=== PATIENT | female | born 1955 | race Caucasian/White ===

== ENCOUNTER 2018-06-22 13:53 | Inpatient (IN) | payer MEDICARE ==
[2018-06-22 14:20] LABS: Lactate 1.35 mmol/L (0.50-2.20)
[2018-06-22 14:27] LABS: Hemoglobin 13.4 g/dL (12.0-16.0); Mean Corpuscular HGB CONC 32.8 g/dL (32.0-36.0); Mean Corpuscular Hemoglobin 27.9 pg (27.0-31.0); Mean Corpuscular Volume 85.2 fL (78.0-98.0); Mean Platelet Volume 7.8 fL (7.4-10.4); Platelet Count 286 thou/uL (130-400); RBC Distribution Width 12.8 % (11.5-14.5); Red Blood Cell (RBC) Count 4.79 mill/uL (4.20-5.40); White Blood Cell (WBC) Count 23.3 thou/uL (4.8-10.8)
[2018-06-22] MEDS ORDERED: diphenhydrAMINE 50 MG/ML VIAL ONE (14:34)
[2018-06-22] MEDS ORDERED: Metoclopramide HCl 10 MG/2 ML VIAL ONE (14:34)
[2018-06-22] MEDS ORDERED: Sodium Chloride 0.9% 100 ML ONE (14:34)
[2018-06-22] MEDS ORDERED: Dexamethasone 10 MG/ML VIAL ONE (14:34)
[2018-06-22] MEDS ORDERED: cefTRIAXone\\ROCEPHIN 1 GM VIAL ONE (14:34)
[2018-06-22 14:39] LABS: Bilirubin Negative (Negative); Blood, Urine Moderate (Negative); Clarity CLOUDY (Clear); Glucose, Urine (Dipstick) Negative (Negative); Leukocyte Large (Negative); Nitrite Positive (Negative); Protein, Urine (Dipstick) 100 mg/dL (Neg-Trace); Specific Gravity, Urine 1.015 (1.002-1.036)
[2018-06-22] MEDS ORDERED: Acetaminophen 500 MG TAB ONE (14:39)
[2018-06-22 14:40] LABS: Bacteria/HPF 4+ HPF (None Seen); Hyaline Casts/LPF 0-3 HYALINE CAST LPF (0-3 Hyaline); Squamous Epithelial None Seen HPF (0-3)
[2018-06-22 14:42] LABS: ALT (SGPT) 18 U/L (8-55); AST (SGOT) 17 U/L (5-34); Albumin 4.1 g/dL (3.4-4.8); Alkaline Phosphatase 91 U/L (40-150); Anion Gap 13 mmol/L (10-20); BUN (Urea Nitrogen) 17 mg/dL (9.8-20.1); Bilirubin, Total 0.8 mg/dL (0.2-1.2); Calc. Creatinine Clearance 0 mL/min (70-130); Calcium 9.6 mg/dL (7.8-10.44); Carbon Dioxide 24 mmol/L (23-31); Chloride 104 mmol/L (98-107); Estimated GFR-MDRD 26; Globulin 3.7 g/dL (2.4-3.5); Glucose 129 mg/dL (80-115); Potassium 3.9 mmol/L (3.5-5.1); Protein, Total 7.8 g/dL (6.0-8.3); Sodium 137 mmol/L (136-145)
[2018-06-22 14:45] LABS: Yeast-AUWi Flag 33.5 (0-25.0)
[2018-06-22 14:46] LABS: Yeast-All Forms None Seen HPF (None Seen)
[2018-06-22 14:57] LABS: Band 24 % (5-11); Lymphocytes 4 % (21-51); MDiff Complete? YES; Monocytes 3 % (0-10); Neutrophil 68 % (42-75); PLT Morphology Comment Appears Adequate; Reactive Lymphocytes 1 % (0-10)
--- NOTE | 2018-06-22 15:16 | RAD ---
PORTABLE CHEST: Date: 06/22/18 HISTORY: Fever. FINDINGS: Lung duval are clear. Heart and mediastinum unremarkable. IMPRESSION: No acute abnormality. POS: [facility]
--- NOTE | 2018-06-22 15:27 | CT ---
CT HEAD WITHOUT CONTRAST: Date: 06/22/18 Multiple axial tomograms obtained through the head without IV enhancement. INDICATION: Headache. FINDINGS: The ventricles have normal size and position. No evidence of intracranial hemorrhage. No mass or seng a. No evidence of infarct. IMPRESSION: No acute abnormality. POS: [facility]
[2018-06-22] MEDS ORDERED: Lidocaine 1% (PF) 30 ML VIAL ONE (15:59)
[2018-06-22] MEDS ORDERED: Mometasone/Formoterol 120 PUFF INHALER INH PRN (18:11)
[2018-06-22] MEDS ORDERED: Ketorolac Tromethamine 30 MG/ML VIAL ONE (18:14)
[2018-06-22 18:26] LABS: Color Of CSF Supernatant COLORLESS (Colorless); Tube # 2; Unspun CSF Color COLORLESS (Colorless)
[2018-06-22 18:34] LABS: CSF Source CSF; Clarity Clear (Clear); Tube # 1
[2018-06-22 18:35] LABS: CSF Source CSF; Clarity Clear (Clear); RBC Count - Manual 0 /cumm (None Seen); RBC Count - Manual 218 /cumm (None Seen); Tube # 4; WBC/NonHematics Count - Manual 1 /cumm (0-5)
[2018-06-22 18:38] LABS: CSF, Glucose 74 mg/dl (40-70); CSF, Protein 61 mg/dL (15-40)
[2018-06-22] MEDS ORDERED: diphenhydrAMINE 50 MG/ML VIAL IVP PRN (18:54)
[2018-06-22] MEDS: Heparin 5,000 UNITS/ML VIAL SC SCH (21:34)
[2018-06-22] MEDS: Baclofen 10 MG TAB PO SCH (21:36)
[2018-06-22] MEDS: Sodium Chloride 0.9% 1,000 ML IV SCH (21:36)
[2018-06-22] MEDS: clonazePAM 1 MG TAB PO SCH (21:36)
[2018-06-22] MEDS: Mirtazapine 30 MG TAB PO SCH (21:36)
[2018-06-22] MEDS: Nicotine 14 MG PATCH TD SCH (21:38)
[2018-06-22] MEDS: Famotidine/PF 20 mg/2ml Vial SLOW IVP SCH (21:39)
[2018-06-22] MEDS: traMADol HCl 50 MG TAB PO PRN (21:58)
--- NOTE | 2018-06-22 23:56 | HP ---
CHIEF COMPLAINT: Headache and fever. HISTORY OF PRESENT ILLNESS: Patient is a very pleasant 62-year-old female with a past medical histor y of bipolar disorder, fibromyalgia, lower back pain, history of anxiety and depression who presents to the hospital with complaints of headache and also fever. Patient stated that she has been having headache for the past 2-3 weeks. Describes the headache as just significant achy painful all over he r head. She has been having some nuchal rigidity or neck pain and also has had some nausea, but no v omiting. The patient stated that she has been taking over the counter ibuprofen and Tylenol for her headaches without any relief. The patient also states that 4 days ago, she started having some fever s, also has had some chills which she also continued to take the ibuprofen and the Tylenol without an y relief. Today, her temperature was 103, so she came into the ER for further evaluation. The patie nt denies any urinary symptoms, any burning or dysuria. She stated that patient did have some incont inence over 2 days, so she took [id number] AZO to help with her symptoms. Looking at her histo ry, patient has had multiple histories of UTIs in the past. The patient also states that she has to take antibiotics prior to her intercourse and after intercourse. PAST MEDICAL HISTORY: Anxiety, depression, bipolar, fibromyalgia. PAST SURGICAL HISTORY: Hysterectomy, left wrist surgery, and spinal surgery. SOCIAL HISTORY: She smokes half a pack a day, does not drink or any drug use. REVIEW OF SYSTEMS: All negative except the ones mentioned above in the HPI. FAMILY HISTORY: Mother and father had history of strokes. The patient is a FULL CODE per her. MEDICATIONS: Patient takes Seroquel 600 mg at bedtime, clonazepam 1 mg q.p.m., vitamin D 2000 units daily, baclofen 10 mg at bedtime, also sertraline 100 mg daily, tramadol 50 mg q.4 hours p.r.n., and also Breo one inhalation 1 puff b.i.d. ALLERGIES: She is allergic to DULOXETINE, LATEX, NATURAL RUBBER, and PREGABALIN. PHYSICAL EXAMINATION: VITAL SIGNS: Temperature of 100. In the ER, she was found to have a temperature of 102.0. Her hear t rate was in the 110s. Her blood pressure was 116/80, O2 sat 96% on room air. GENERAL: She is awake, alert and oriented x3. Does not appear in any distress. CARDIOVASCULAR: S1, S2 present. No murmurs, rubs or gallops. Mild tachycardia. LUNGS: She does have mild expiratory wheezing bilaterally. No rhonchi noted. ABDOMEN: Soft. Bowel sounds are present x2. No pain upon palpation. HEENT: She does have significant pain upon palpation to her neck area and also has some pain on palp ation to her left sternocleidomastoid muscle area. The patient's range of motion towards especially of her head to the left shoulder is limited and is very painful. Neurovascular west, no focal defici ts noted. She is able to move all her extremities. Strength is intact. SKIN: She has got no cuts, lesions or bruises. LABORATORY DATA AND IMAGING DATA: Are as of the following; she had WBCs of 23.3, hemoglobin of 13.4, hematocrit of 40.8. Her bands were 24. Chemistry, she has sodium of 137, potassium of 3.9, creatin ine 1.95, BUN of 17 and no TSH was done. Her lipase was 5. Her urine was significantly positive for infectious, her urine nitrate was positive. She did have a spinal tap which indicated her color was colorless, WBC was 1, RBC on tube 1 was 218 and tube 4 was 0, glucose was elevated at 74. Total pro tein was 61. ASSESSMENT AND PLAN: The patient is a very pleasant 62-year-old female who presented to the hospital with chills and headache. 1. Sepsis, most likely from urinary tract infection. We will start the patient on ceftriaxone. Con tinue to monitor. Blood cultures are done. She did have a spinal tap to rule out meningitis. Does not look like meningitis; however, we will await for the culture. Also we will also wait for the uri ne culture to be grown. 2. We will start her on some normal saline. She received a total of 2 liters. We will give her nor mal saline at 100 mL an hour. We will also recheck a lactic acid later on and actually her lactic ac id was normal. We will also check an ESR and CRP. 3. Leukocytosis, most likely secondary to her UTI. We will continue to monitor. 4. Significant headache. Her CT head was negative. We will continue antibiotics for UTI and will p ut patient on some pain medications. 5. Acute kidney injury. This is most likely secondary to patient taking ibuprofen may be possibly c ombination of not drinking enough water. I will continue to monitor. We will hold all nephrotoxins and continue to monitor the patient. 6. Deep venous thrombosis prophylaxis. We will put patient on subcu heparin.
[2018-06-23 03:33] VITALS: BMI 28.8
[2018-06-23 05:33] LABS: #Monocytes 0.6 thou/uL (0.11-0.59); #Neutrophils 15.5 thou/uL (1.40-6.50); %Eosinophils 0.2 % (0.0-10.0); %Lymphocytes 5.6 % (21.0-51.0); %Monocytes 3.5 % (0.0-10.0); %Neutrophils 90.8 % (42.0-75.0); Hemoglobin 10.5 g/dL (12.0-16.0); Mean Corpuscular HGB CONC 32.5 g/dL (32.0-36.0); Mean Corpuscular Hemoglobin 27.9 pg (27.0-31.0); Mean Corpuscular Volume 85.9 fL (78.0-98.0); Mean Platelet Volume 8.5 fL (7.4-10.4); Platelet Count 230 thou/uL (130-400); RBC Distribution Width 12.8 % (11.5-14.5); Red Blood Cell (RBC) Count 3.75 mill/uL (4.20-5.40); White Blood Cell (WBC) Count 17.1 thou/uL (4.8-10.8)
[2018-06-23] MEDS: Sodium Chloride 0.9% 1,000 ML IV SCH ×2 (05:44→15:03)
[2018-06-23 05:56] LABS: Anion Gap 8 mmol/L (10-20); BUN (Urea Nitrogen) 19 mg/dL (9.8-20.1); Calc. Creatinine Clearance 57 mL/min (70-130); Calcium 8.2 mg/dL (7.8-10.44); Carbon Dioxide 20 mmol/L (23-31); Chloride 115 mmol/L (98-107); Estimated GFR-MDRD 41; Glucose 137 mg/dL (80-115); Potassium 3.7 mmol/L (3.5-5.1); Sodium 139 mmol/L (136-145)
[2018-06-23] MEDS: Heparin 5,000 UNITS/ML VIAL SC SCH ×3 (07:49→20:34)
[2018-06-23] MEDS: Famotidine/PF 20 mg/2ml Vial SLOW IVP SCH ×2 (07:49→20:34)
[2018-06-23] MEDS: traMADol HCl 50 MG TAB PO PRN (07:56)
[2018-06-23] MEDS: Acetaminophen 325 MG TAB PO PRN ×2 (09:43→19:07)
[2018-06-23] MEDS ORDERED: cefTRIAXone\\ROCEPHIN 1 GM in Sodium Chloride 0.9% 100 ML IVPB SCH (15:00)
[2018-06-23] MEDS: Mirtazapine 30 MG TAB PO SCH (20:32)
[2018-06-23] MEDS: clonazePAM 1 MG TAB PO SCH (20:32)
[2018-06-23] MEDS: Baclofen 10 MG TAB PO SCH (20:32)
[2018-06-23] MEDS: Nicotine 14 MG PATCH TD SCH (21:27)
[2018-06-24] MEDS: Sodium Chloride 0.9% 1,000 ML IV SCH ×2 (01:52→12:08)
[2018-06-24 05:29] LABS: Anion Gap 10 mmol/L (10-20); BUN (Urea Nitrogen) 16 mg/dL (9.8-20.1); Calc. Creatinine Clearance 59 mL/min (70-130); Calcium 8.5 mg/dL (7.8-10.44); Carbon Dioxide 22 mmol/L (23-31); Chloride 117 mmol/L (98-107); Estimated GFR-MDRD 42; Glucose 76 mg/dL (80-115); Potassium 3.4 mmol/L (3.5-5.1); Sodium 146 mmol/L (136-145)
[2018-06-24 05:33] LABS: Band 2 % (5-11); Elliptocytes SLIGHT = 2-5 cells (100X) (0-1/hpf); Hemoglobin 10.4 g/dL (12.0-16.0); Lymphocytes 22 % (21-51); MDiff Complete? YES; Mean Corpuscular HGB CONC 31.4 g/dL (32.0-36.0); Mean Corpuscular Hemoglobin 27.3 pg (27.0-31.0); Mean Corpuscular Volume 86.9 fL (78.0-98.0); Mean Platelet Volume 8.3 fL (7.4-10.4); Monocytes 5 % (0-10); Neutrophil 70 % (42-75); Platelet Count 269 thou/uL (130-400); Reactive Lymphocytes 1 % (0-10); Red Blood Cell (RBC) Count 3.82 mill/uL (4.20-5.40); White Blood Cell (WBC) Count 11.5 thou/uL (4.8-10.8)
[2018-06-24] MEDS: Acetaminophen 325 MG TAB PO PRN ×3 (06:19→22:04)
[2018-06-24] MEDS: Heparin 5,000 UNITS/ML VIAL SC SCH ×3 (07:54→21:16)
[2018-06-24] MEDS: Famotidine/PF 20 mg/2ml Vial SLOW IVP SCH ×2 (07:54→21:15)
--- NOTE | 2018-06-24 10:45 | PDOC.PN ---
- Subjective Encounter Start Date: 06/24/18 Encounter Start Time: 10:30 Subjective: f/u for sepsis due to UTI with GNR on current Rocephin. Feels weak today -: and had low-grade temp earlier. Voiding frequently. - Objective Resuscitation Status: Resuscitation Status FULL:Full Resuscitation MAR Reviewed: Yes Vital Signs & Weight: Vital Signs (12 hours) Temp Pulse Resp BP Pulse Ox 06/24/18 08:00 93 L 06/24/18 07:51 99.3 F 103 H 18 121/77 93 L 06/24/18 07:12 97 16 100 06/24/18 04:00 99.2 F 100 18 121/71 97 06/24/18 00:00 98.6 F 90 16 107/72 91 L Weight Weight 178 lb 11.2 oz I&O: 06/23/18 06/24/18 06/25/18 06:59 06:59 06:59 Intake Total 1370 960 Balance 1370 960 Result Diagrams: 06/24/18 04:17 06/24/18 04:17 Additional Labs: Microbiology 06/22/18 17:00 Nasal swab Influenza Types A,B Direct EIA - Final 06/22/18 17:35 Spinal Fluid Culture - Pending Body Fluid Culture - Preliminary 06/22/18 14:21 Urine Straight Catheter Urine Culture - Preliminary Gram Negative Parag Gram Negative Parag#2 06/22/18 14:10 Venous blood - Right Arm Blood Culture - Preliminary Specimen has been received and culture in progress. No Growth to date. 06/22/18 14:10 Venous blood - Left Arm Blood Culture - Preliminary Specimen has been received and culture in progress. No Growth to date. Laboratory Tests 06/22/18 06/22/18 06/22/18 14:07 14:10 14:10 WBC 23.3 H Hgb 13.4 Band Neuts % (Manual) 24 H Sodium Creatinine 1.95 H C-Reactive Protein 23.65 H 06/23/18 06/23/18 06/24/18 04:49 04:49 04:17 WBC 17.1 H Hgb 10.5 L Band Neuts % (Manual) 2 L Sodium 139 Creatinine 1.33 H C-Reactive Protein Radiology Reviewed by me: Yes (CT brain - no acute process) Phys Exam - Physical Examination Constitutional: NAD HEENT: PERRLA, sclera anicteric, oral pharynx no lesions Neck: no nodes, no JVD, supple, full ROM Respiratory: no wheezing, no rales, no rhonchi, clear to auscultation bilateral S1, S2 Cardiovascular: RRR, no significant murmur, no rub, gallop Gastrointestinal: soft, non-tender, no distention, positive bowel sounds Musculoskeletal: no edema, pulses present Neurological: non-focal, normal sensation, moves all 4 limbs Psychiatric: normal affect, A&O x 3 Skin: no rash, normal turgor, cap refill <2 seconds Dx/Plan (1) Sepsis Code(s): A41.9 - SEPSIS, UNSPECIFIED ORGANISM Status: Acute Comment: Secondary to UTI with GNR spp, continue Rocephin, add Levaquin 500mg po daily (2) UTI (urinary tract infection) Status: Acute Comment: GNR spp, final identification pending, add Levaquin to Rocephin (3) JOSE LUIS (acute kidney injury) Code(s): N17.9 - ACUTE KIDNEY FAILURE, UNSPECIFIED Status: Acute Comment: Improved, avoid nephrotoxic meds and limit contrast exposure, serial monitoring (4) Hypernatremia Code(s): E87.0 - HYPEROSMOLALITY AND HYPERNATREMIA Status: Acute Comment: Change IVF D5W at 100ml/h (5) Tobacco abuse Code(s): Z72.0 - TOBACCO USE Status: Chronic Comment: Tobacco cessation resources - Plan continue antibiotics, protective services social worker, out of bed/ambulate, DVT proph w/SCDs Stable currently -: Add Levaquin 500mg po daily -: Continue Rocephin another 24h -: Change IVF D5W -: OOB/ambulate * AM lab: BMP, CBC
[2018-06-24] MEDS: Dextrose 5% in Water 1,000 ML IV SCH ×2 (11:45→22:02)
[2018-06-24] MEDS: traMADol HCl 50 MG TAB PO PRN ×3 (11:47→22:03)
[2018-06-24] MEDS ORDERED: cefTRIAXone\\ROCEPHIN 2 GM in Sodium Chloride 0.9% 100 ML IVPB SCH (15:00)
[2018-06-24] MEDS: Baclofen 10 MG TAB PO SCH (21:15)
[2018-06-24] MEDS: clonazePAM 1 MG TAB PO SCH (21:15)
[2018-06-24] MEDS: Mirtazapine 30 MG TAB PO SCH (21:16)
[2018-06-24] MEDS: Nicotine 14 MG PATCH TD SCH (21:16)
[2018-06-25] MEDS: Dextrose 5% in Water 1,000 ML IV SCH (05:29)
[2018-06-25 05:38] LABS: Anion Gap 10 mmol/L (10-20); BUN (Urea Nitrogen) 8 mg/dL (9.8-20.1); Calc. Creatinine Clearance 61 mL/min (70-130); Calcium 8.3 mg/dL (7.8-10.44); Carbon Dioxide 22 mmol/L (23-31); Chloride 112 mmol/L (98-107); Estimated GFR-MDRD 44; Glucose 82 mg/dL (80-115); Potassium 3.1 mmol/L (3.5-5.1); Sodium 141 mmol/L (136-145)
[2018-06-25 05:48] LABS: Band 7 % (5-11); Hemoglobin 9.6 g/dL (12.0-16.0); Lymphocytes 37 % (21-51); MDiff Complete? YES; Mean Corpuscular HGB CONC 31.9 g/dL (32.0-36.0); Mean Corpuscular Hemoglobin 27.6 pg (27.0-31.0); Mean Corpuscular Volume 86.4 fL (78.0-98.0); Mean Platelet Volume 8.1 fL (7.4-10.4); Monocytes 6 % (0-10); Neutrophil 50 % (42-75); Platelet Count 276 thou/uL (130-400); RBC Distribution Width 12.9 % (11.5-14.5); Red Blood Cell (RBC) Count 3.47 mill/uL (4.20-5.40); White Blood Cell (WBC) Count 6.6 thou/uL (4.8-10.8)
[2018-06-25] MEDS: Heparin 5,000 UNITS/ML VIAL SC SCH (07:56)
[2018-06-25] MEDS: Famotidine/PF 20 mg/2ml Vial SLOW IVP SCH (07:56)
[2018-06-25] MEDS: Acetaminophen 325 MG TAB PO PRN (07:58)
[2018-06-25] MEDS: traMADol HCl 50 MG TAB PO PRN (07:58)
[2018-06-25 11:45] VITALS: BP 119/83; TEMP 98.7
--- NOTE | 2018-06-25 12:45 | DIS ---
DATE OF ADMISSION: 06/22/2018 DATE OF DISCHARGE: 06/25/2018 DISCHARGE DIAGNOSES: 1. Sepsis, secondary to #2, resolving. 2. Urinary tract infection with Escherichia coli. 3. Acute kidney injury, resolving. 4. Hypernatremia, resolved. 5. Tobacco abuse. CONSULTATIONS: None. PERTINENT LABORATORY AND X-RAY FINDINGS: Creatinine ranged between 1.23-1.95. Estimated GFR ranged between 26-44. CRP 23.65. CBC showed a white blood cell count ranged between 6.6-23.3, hemoglobin r anged between 9.6-13.4. Blood cultures x2 dated 06/22/2018 showed no growth at 48 hours. Urine cult ure dated 06/22/2018 showed greater than 100,000 colonies of E. coli resistant to Bactrim and ampicil javier. Influenza A and B antigen dated 06/22/2018 negative. CSF fluid culture dated 06/22/2018 showed no growth at 48 hours. Portable chest x-ray dated 06/22/2018 showed no acute cardiopulmonary proces s. CT of the brain dated 06/22/2018 showed no acute intracranial process. HOSPITAL COURSE: Patient was admitted to the medical floor after initially presenting with headaches and fever. The patient underwent general evaluation with urinalysis concerning for infectious proce ss. The patient was treated for sepsis with aggressive IV fluid hydration and broad-spectrum IV anti biotic therapy directed at urinary source. The patient was slow to clinically improve and initially was managed for potential meningitis-type picture; however, the CSF analysis was unrevealing, and the patient's source was a urinary tract infection. Urine culture did reveal E. coli species, as patien t transitioned from Rocephin to Levaquin orally. Overall, patient did remain clinically stable, tole rating regular oral intake, ambulating without assistance or difficulty and voiding appropriately. I have examined the patient at the time of discharge and discussed followup instructions. The patient verbalized understanding and in agreement and ready for discharge on 06/25/2018. DISCHARGE MEDICATIONS: 1. Levaquin 500 mg 1 tab p.o. daily x8 days. 2. Tylenol 650 mg p.o. q.4-6 hours p.r.n. 3. Baclofen 10 mg p.o. at bedtime. 4. Klonopin 1 mg p.o. at bedtime. 5. Breo Ellipta 100 mcg/25 mcg 1 inhalation daily. 6. Motrin 600 mg p.o. q.i.d. p.r.n. 7. Lactobacillus 2 capsules p.o. daily. 8. Remeron 45 mg p.o. at bedtime. 9. Protonix 40 mg p.o. at bedtime. 10. Seroquel 600 mg p.o. at bedtime. 11. Zoloft 100 mg p.o. daily. FOLLOWUP: The patient to follow up with Dr. Tamanna Ross within 7 days of discharge. CONDITION ON DISCHARGE: Stable. ACTIVITY: Ad ismael. DIET: Regular. CODE STATUS: FULL. DISPOSITION: Home, 06/25/2018.
--- NOTE | 2018-07-07 15:42 | EKG ---
Test Reason : Blood Pressure : / mmHG Vent. Rate : 124 BPM Atrial Rate : 124 BPM P-R Int : 134 ms QRS Dur : 074 ms QT Int : 308 ms P-R-T Axes : 077 078 069 degrees QTc Int : 442 ms Sinus tachycardia Otherwise normal ECG Confirmed by CUBA JOHNSON ([id number]), international editorial producer KINGS BAEZA ([id number]) on 07/07/2018 3:41:50 PM Referred By: Confirmed By:CUBA JOHNSON
== END 2018-06-25 14:07 | disposition home or self-care (01) | DRG 872 ==
LOC: ERS 13:53 → T4-B 17:50
PROVIDERS: ADMIT Internal Medicine; ATTEND Internal Medicine
DX: A41.51 Sepsis due to Escherichia coli [E. coli] (principal); N39.0 Urinary tract infection, site not specified; N17.9 Acute kidney failure, unspecified; E87.0 Hyperosmolality and hypernatremia; F41.9 Anxiety disorder, unspecified; F32.9 Major depressive disorder, single episode, unspecified; M79.7 Fibromyalgia; F17.210 Nicotine dependence, cigarettes, uncomplicated; F31.9 Bipolar disorder, unspecified; Z16.29 Resistance to other single specified antibiotic; Z16.11 Resistance to penicillins
CPT/HCPCS: 36415; 51701; 62270; 70450; 71045; 80048; 80053; 81003; 81015; 82945; 83605; 83690; 84157; 85007; 85025; 85027; 85652; 86140; 87040; 87070; 87077; 87086; 87186; 87205; 87804; 89051; 93005; 94664; 96361; 96365; 96375; A4353; J0696; J1100; J1200; J1644; J1885; J2001; J2765; J3370; J7050; S0028

== ENCOUNTER 2018-10-03 15:54 | Inpatient (IN) | payer MEDICARE ==
[2018-10-03] MEDS ORDERED: cefTRIAXone\\ROCEPHIN 1 GM VIAL ONE (18:00)
[2018-10-03] MEDS ORDERED: Vancomycin HCl 1.5 GM in Sodium Chloride 0.9% 250 ML 300 ML IVPB SCH (18:00)
[2018-10-03 18:17] LABS: #Basophils 0.1 thou/uL (0.0-0.2); #Eosinphils 0.2 thou/uL (0.0-0.7); #Lymphocytes 1.9 thou/uL (1.20-3.40); #Monocytes 0.5 thou/uL (0.11-0.59); #Neutrophils 4.2 thou/uL (1.40-6.50); %Basophils 1.5 % (0.0-1.0); %Eosinophils 2.5 % (0.0-10.0); %Lymphocytes 27.9 % (21.0-51.0); %Monocytes 7.1 % (0.0-10.0); Hemoglobin 14.2 g/dL (12.0-16.0); Mean Corpuscular HGB CONC 32.5 g/dL (32.0-36.0); Mean Corpuscular Hemoglobin 27.7 pg (27.0-31.0); Mean Corpuscular Volume 85.2 fL (78.0-98.0); Platelet Count 290 thou/uL (130-400); RBC Distribution Width 13.3 % (11.5-14.5); Red Blood Cell (RBC) Count 5.11 mill/uL (4.20-5.40)
--- NOTE | 2018-10-03 18:26 | RAD ---
RIGHT FINGER THREE VIEW: 10/03/18 HISTORY: Bit by a squirrel. Infection. COMPARISON: None. FINDINGS: On the PA view there appears to be a faint linear radial opacity projecting over the distal tuft of t he index finger although it could not be confirmed on any of the other views and could be artifactual . There is extensive swelling throughout the second finger. No acute fracture or malalignment. IMPRESSION: No acute fracture or malalignment. Extensive soft tissue swelling likely cellulitis and infection. POS: [facility]
[2018-10-03] MEDS ORDERED: Adacel (T-DAP) 0.5 ML SYRINGE ONE (18:29)
[2018-10-03 18:43] LABS: ALT (SGPT) 105 U/L (8-55); AST (SGOT) 67 U/L (5-34); Albumin 4.4 g/dL (3.4-4.8); Alkaline Phosphatase 127 U/L (40-150); Anion Gap 11 mmol/L (10-20); BUN (Urea Nitrogen) 16 mg/dL (9.8-20.1); Bilirubin, Total 0.4 mg/dL (0.2-1.2); CRP (Inflammatory) 2.46 mg/dL (= or < 0.5); Calc. Creatinine Clearance 0 mL/min (70-130); Calcium 9.8 mg/dL (7.8-10.44); Carbon Dioxide 25 mmol/L (23-31); Chloride 104 mmol/L (98-107); Estimated GFR-MDRD 39; Globulin 3.5 g/dL (2.4-3.5); Glucose 83 mg/dL (80-115); Potassium 3.4 mmol/L (3.5-5.1); Protein, Total 7.9 g/dL (6.0-8.3); Sodium 137 mmol/L (136-145)
[2018-10-03] MEDS ORDERED: Ondansetron PF 4 MG/2 ML Vial ONE (18:57)
[2018-10-03] MEDS ORDERED: Morphine 4 MG/ML VIAL ONE (18:57)
[2018-10-03] MEDS ORDERED: Milk Of Magnesia 30 ML UDCUP PO PRN (20:12)
[2018-10-03] MEDS ORDERED: Ondansetron PF 4 MG/2 ML Vial IV PRN (20:12)
[2018-10-03] MEDS ORDERED: traMADol HCl 50 MG TAB PO PRN (20:12)
[2018-10-03] MEDS ORDERED: Fentanyl 100 MCG/2 ML VIAL SLOW IVP PRN (20:12)
[2018-10-03] MEDS ORDERED: Communication Order-Pharmacy FS PRN (20:15)
[2018-10-03 21:59] VITALS: BMI 27.7
[2018-10-03] MEDS: Piperacillin/Tazobactam 3.375 GM in Sodium Chloride 0.9% 100 ML IVPB SCH (22:20)
[2018-10-03] MEDS: HYDROcodone/Acetaminophen 5/325 mg Tablet PO PRN (22:21)
[2018-10-03] MEDS ORDERED: Mometasone/Formoterol 120 PUFF INHALER INH PRN (22:52)
[2018-10-03] MEDS ORDERED: Mirtazapine 30 MG TAB PO SCH (23:00)
[2018-10-03] MEDS ORDERED: clonazePAM 1 MG TAB PO SCH (23:00)
[2018-10-03] MEDS ORDERED: Baclofen 10 MG TAB PO SCH (23:00)
--- NOTE | 2018-10-04 00:08 | HP ---
CHIEF COMPLAINT: Right index finger pain. HISTORY OF PRESENT ILLNESS: Ms. Newell is a 62-year-old female, who injured her index finger approximately 10 days ago. She actually was attempting to extract a squirrel from her cat. They were fighting. The squirrel bit her index finger. She initially washed the wound and treated it with Neosporin. It became progressively more inflamed and painful. She has been on oral antibiotics. She has seen her primary care physician who attempted an I and D in the office 3 days ago. She steadily has worsened unfortunately. She developed increased swelling now, inability to flex the finger. She has presented to the emergency room tonight. She has received a dose of vancomycin. She is reporting pain in the finger, otherwise negative. No fevers or chills. She feels normal except for her finger. She does have history of severe UTI. She reports in May that evolved into urosepsis. She was treated at [facility] for that. PAST MEDICAL HISTORY: Anxiety, depression, bipolar disorder, fibromyalgia, and history of UTIs. PAST SURGICAL HISTORY: Hysterectomy, previous left wrist surgery, and lumbar spinal surgery. SOCIAL HISTORY: The patient smokes cigarettes. She denies alcohol or drug use. REVIEW OF SYSTEMS: Positive for right finger pain. Otherwise, negative 10-point review of systems. FAMILY MEDICAL HISTORY: CVA. IMAGING DATA: X-rays show swelling of the index finger. Otherwise, negative for acute findings. PHYSICAL EXAMINATION: VITAL SIGNS: Stable. Patient is afebrile. She is normotensive. GENERAL: She is alert, lying supine, in no apparent distress. RESPIRATORY: Breathing comfortably. ABDOMEN: Soft, nontender, and nondistended. CARDIOVASCULAR: Pulses palpable and regular. MUSCULOSKELETAL: The patient's right hand has a dorsal wound over the index finger just distal to the DIP joint. There is swelling of the digit from the PIP joint distally. She has tenderness to palpation. There is erythema. She is able to flex and extend the digits slightly, although flexion is limited to approximately 20 degrees. She has intact sensation at the tip of the finger. Two-second capillary refill. She has no palmar tenderness and no proximal finger tenderness over the flexor tendon. IMPRESSION: Squirrel bite to right index finger, now with infection worsening which has failed outpatient antibiotics. PLAN: At this point, the patient will need to be admitted to the hospital. She will have intravenous antibiotics. I will start vancomycin and Zosyn. We will treat her with broad-spectrum antibiotics. She will have pain control as needed. I will see her again early in the morning. If she has not improved significantly, I will go ahead and take her to the operating room for an irrigation and debridement procedure. She will likely need incision over the dorsal wound as well as over the flexor tendon to wash the tendon sheath. She may have an early flexor tenosynovitis. She will be n.p.o. at midnight. She is aware of risks and benefits. She is aware she will likely need to be in the hospital for 2 to 3 days. Job ID: [id number]
[2018-10-04] MEDS: Piperacillin/Tazobactam 3.375 GM in Sodium Chloride 0.9% 100 ML IVPB SCH ×4 (03:37→20:10)
[2018-10-04] MEDS: HYDROcodone/Acetaminophen 5/325 mg Tablet PO PRN ×2 (03:41→20:10)
[2018-10-04 04:43] LABS: #Eosinphils 0.1 thou/uL (0.0-0.7); #Lymphocytes 1.7 thou/uL (1.20-3.40); #Monocytes 0.6 thou/uL (0.11-0.59); #Neutrophils 3.1 thou/uL (1.40-6.50); %Basophils 0.8 % (0.0-1.0); %Eosinophils 2.1 % (0.0-10.0); %Lymphocytes 30.2 % (21.0-51.0); %Monocytes 10.2 % (0.0-10.0); %Neutrophils 56.7 % (42.0-75.0); Hemoglobin 11.5 g/dL (12.0-16.0); Mean Corpuscular HGB CONC 33.2 g/dL (32.0-36.0); Mean Corpuscular Hemoglobin 28.2 pg (27.0-31.0); Mean Platelet Volume 7.9 fL (7.4-10.4); Platelet Count 218 thou/uL (130-400); RBC Distribution Width 13.1 % (11.5-14.5); Red Blood Cell (RBC) Count 4.08 mill/uL (4.20-5.40); White Blood Cell (WBC) Count 5.5 thou/uL (4.8-10.8)
[2018-10-04] MEDS ORDERED: Fentanyl 250 MCG/5 ML VIAL ONE (07:52)
[2018-10-04] MEDS ORDERED: Neomycin-Polymyxin 1 ML AMP ONE (07:55)
[2018-10-04] MEDS ORDERED: Lidocaine 2% 11 ML SYR ONE (08:06)
[2018-10-04] MEDS ORDERED: Bupivacaine PF 0.5% 30 ML VIAL ONE (08:36)
[2018-10-04] MEDS ORDERED: Fentanyl 100 MCG/2 ML VIAL ONE (09:09)
--- NOTE | 2018-10-04 09:11 | OP ---
DATE OF PROCEDURE: 10/04/2018 OPERATION: Irrigation and debridement of right index finger. PREOPERATIVE DIAGNOSIS: Right index finger infection. POSTOPERATIVE DIAGNOSIS: Right index finger infection. COMPLICATIONS: None. ESTIMATED BLOOD LOSS: Minimal. IMPLANTS: None. INDICATIONS: Mrs. Newell is a 62-year-old female, who was bitten by a squirrel. She had an infection that has failed outpatient antibiotic treatment. She was indicated for irrigation and debridement to eradicate underlying abscess as well as continued intravenous antibiotic treatment. Risks have been reviewed. She elected to proceed with the operation. DESCRIPTION OF PROCEDURE: Mrs. Newell was identified in the preoperative holding area. Her correct extremity was marked. She was carried to the operating room. She was positioned supine. General anesthesia was induced. A multidisciplinary time-out was performed. The right upper extremity was prepped and draped in sterile fashion. We began the procedure with incision over the patient's dorsal index finger and a wound. We dissected down through the subcutaneous tissues and encountered a pocket of purulent fluid. This was cultured. We performed a debridement sharply with a knife protecting the extensor tendon. We then thoroughly irrigated with copious lavage. Finally, we loosely closed with a 4-0 nylon suture. At this point, we moved to the palmar surface of the finger. We made an incision in the flexor crease at the DIP joint. We dissected down to the flexor tendon sheath. This was opened. There was no gross purulence. We irrigated the tendon sheath as well as the surrounding tissues. Again, we loosely closed after thorough irrigation. We placed the patient in a sterile dressing after a digital block was performed. At this point, the patient was taken to the recovery room in good condition without complication. Job ID: [id number]
[2018-10-04] MEDS ORDERED: Ondansetron HCl/PF 4 MG/2 ML Vial IVP PRN (09:12)
[2018-10-04] MEDS ORDERED: Promethazine HCl 25 MG/ML VIAL SLOW IVP PRN (09:12)
[2018-10-04] MEDS ORDERED: Promethazine HCl 25 MG/ML VIAL IM PRN (09:12)
[2018-10-04] MEDS ORDERED: Lidocaine 1% PF 5 ML VIAL ONE (16:16)
[2018-10-04] MEDS ORDERED: PROPOFOL 200 MG/20 ML VIAL ONE (16:16)
[2018-10-04] MEDS ORDERED: Ondansetron PF 4 MG/2 ML Vial ONE (16:16)
[2018-10-04] MEDS ORDERED: PHENYLEPHRINE-NS 100 MCG/ML 10 ML SYRINGE ONE (16:16)
[2018-10-04] MEDS ORDERED: Glycopyrrolate 0.2 MG/ML 5 ML SYRINGE ONE (16:16)
[2018-10-04] MEDS: Vancomycin HCl 1.5 GM in Sodium Chloride 0.9% 250 ML 300 ML IVPB SCH (17:51)
[2018-10-04] MEDS: Baclofen 10 MG TAB PO SCH (20:09)
[2018-10-04] MEDS: Mirtazapine 30 MG TAB PO SCH (20:10)
[2018-10-04] MEDS: clonazePAM 1 MG TAB PO SCH (20:10)
[2018-10-05] MEDS: Piperacillin/Tazobactam 3.375 GM in Sodium Chloride 0.9% 100 ML IVPB SCH ×4 (03:48→21:16)
[2018-10-05] MEDS: HYDROcodone/Acetaminophen 5/325 mg Tablet PO PRN ×5 (03:52→21:26)
[2018-10-05 17:17] LABS: Vancomycin, Trough 9.6 ug/mL
[2018-10-05] MEDS: Vancomycin HCl 1.5 GM in Sodium Chloride 0.9% 250 ML 300 ML IVPB SCH (18:40)
[2018-10-05] MEDS: Baclofen 10 MG TAB PO SCH (21:15)
[2018-10-05] MEDS: clonazePAM 1 MG TAB PO SCH (21:15)
[2018-10-05] MEDS: Mirtazapine 30 MG TAB PO SCH (21:16)
[2018-10-06] MEDS: Piperacillin/Tazobactam 3.375 GM in Sodium Chloride 0.9% 100 ML IVPB SCH ×2 (03:38→09:03)
[2018-10-06] MEDS: HYDROcodone/Acetaminophen 5/325 mg Tablet PO PRN ×2 (05:37→12:18)
[2018-10-06 12:02] VITALS: BP 130/85; TEMP 98.4
--- NOTE | 2018-10-06 13:21 | PQF ---
DATE: 10-06-18 ATTN: DR. MESSI HUTCHISON Please exercise your independent, professional judgment in responding to the clarification form. Clinical indicators are provided on the bottom of this form for your review Please check appropriate box(s): [ x ] Excisional Debridement: [x ] Excised [ ] Cut away [ ] Other: Depth / layer: (deepest layer of debridement): [ ] Skin[ ] SubQ Tissue [ x] Fascia [ ] Muscle [ ] Tendon [ ] Bone Appearance of wound: (e.g., down to fresh bleeding tissue, etc.)___ Margins: (please specify): / x x Instruments used: [ x] Scissors [ x] Scalpel [ ] Curette [ ] Soft tissue clipper [ ] Other: [ ] Non-excisional Debridement: (Removal by flushing, brushing, chemical, or washing) Depth / layer: (deepest layer of debridement): [ ] Skin[ ] Subcutaneous [ ] Fascia [ ] Muscle [ ] Tendon [ ] Bone [ ] Other procedure diagnosis [ ] Unable to determine For continuity of documentation, please document condition throughout progress notes and discharge summary. Thank You. CLINICAL INDICATORS - SIGNS / SYMPTOMS / LABS OPERATIVE NOTE 10-04-18: IRRIGATION AND DEBRIDEMENT OF RIGHT INDEX FINGER: WE PERFORMED A DEBRIDEMENT SHARPLY WITH A KNIFE PROTECTING THE EXTENSOR TENDON, WE DISSECTED DOWN TO THE FLEXOR TENDON SHEATH. RISK FACTORS: OPERATIVE NOTE 10-04-18: R INDEX FINGER INFECTION TREATMENTS: OPERATIVE NOTE 10-04-18: IRRIGATION AND DEBRIDEMENT OF RIGHT INDEX FINGER (This form is maintained as a part of the permanent medical record) 2015 [employer]. All Rights Reserved [email or web address] [email or web address] Office: [phone] ASUNCION
--- NOTE | 2018-10-06 13:39 | PQF ---
DATE: 10-06-18 ATTN: DR. MESSI HUTCHISON Please exercise your independent, professional judgment in responding to the clarification form. Clinical indicators are provided on the bottom of this form for your review Please check appropriate box(s): [ ] Acute Renal Failure (ARF) / Acute Kidney Injury (JOSE LUIS) [ ] Insignificant Lab Values [ ] Other diagnosis [ x ] Unable to determine In addition, please specify: Present on Admission (POA): [ ] Yes [ ] No [ x ] Unable to determine National Kidney Foundation Guidelines for CKD Staging Stage I Kidney damage with normal or increased GFR GFR > 90 Stage II Kidney damage with mildly decreased GFR GFR 60-89 Stage III Kidney damage with moderately decreased GFR GFR 30-59 Stage IV Kidney damage with severely decreased GFR GFR 16-29 Stage V Kidney failure GFR<15 ESRD End Stage Renal Disease On dialysis Acute Renal Failure/Acute Kidney Failure defined as: Increases in SCr by (>) 0.3 mg/dl within 48 hours OR- Increases in SCr by (>) 1.5 times baseline, known or presumed to have occurred within the prior 7 days OR- Urine volume < 0.5 ml/kg/hour for 6 hours (KDIGO supplement 2012 for RIFLE/NATALY criteria) For continuity of documentation, please document condition throughout progress notes and discharge summary. Thank You. CLINICAL INDICATORS - SIGNS / SYMPTOMS / LABS GFR: 10-03-18: 39 CREATININE: 10-03-18: 1.38 BUN: 10-03-18: 16 H&P: SHE HAS BEEN ON ORAL ANTIBIOTICS, HX OF SEVERE UTI'S RISK FACTORS: H&P: SHE HAS BEEN ON ORAL ANTIBIOTICS, HX OF SEVERE UTI'S TREATMENTS: MAR: 10-03-18: PHARMACY TO ADJUST DOSE OF ALL ANTIBIOTICS BASED UPON CRCL/RENAL FUNCTION (This form is maintained as a part of the permanent medical record) 2014 [employer] All Rights Reserved [email or web address] Office: [phone] [facility]
== END 2018-10-06 13:40 | disposition home or self-care (01) | DRG 580 ==
LOC: ERS 15:54 → OBSVTOIN 20:50 → SURG A 20:50
PROVIDERS: ADMIT Orthopaedic Surgery; ATTEND Orthopaedic Surgery
PROC: 0JBJ0ZZ Excision of Right Hand Subcutaneous Tissue and Fascia, Open Approach (ICD-10-PCS; principal; 2018-10-04)
DX: L02.511 Cutaneous abscess of right hand (principal); M51.06 Intervertebral disc disorders with myelopathy, lumbar region; F41.9 Anxiety disorder, unspecified; J44.9 Chronic obstructive pulmonary disease, unspecified; F31.9 Bipolar disorder, unspecified; V00-Y99 External causes of morbidity; M79.7 Fibromyalgia; M06.9 Rheumatoid arthritis, unspecified; Z23 Encounter for immunization; E53.9 Vitamin B deficiency, unspecified; M81.0 Age-related osteoporosis without current pathological fracture; F17.210 Nicotine dependence, cigarettes, uncomplicated; Z87.440 Personal history of urinary (tract) infections; Z88.8 Allergy status to other drugs, medicaments and biological substances; Z91.040 Latex allergy status
CPT/HCPCS: 36415; 80053; 80202; 83605; 85025; 85652; 86140; 87040; 87070; 87077; 87149; 87186; 87205; 90471; 90715; 96365; 96367; 96375; J0696; J2001; J2270; J2405; J2543; J2704; J3010; J3370; J7050; S0020

== ENCOUNTER 2018-10-09 08:40 | Inpatient (IN) | payer MEDICARE ==
[~2018-10-09 08:40] MED LIST: ISOVUE-370 76%-LOCM 1 ML ONE
[2018-10-09 09:15] LABS: Hemoglobin 12.9 g/dL (12.0-16.0); Mean Corpuscular HGB CONC 31.5 g/dL (32.0-36.0); Mean Corpuscular Hemoglobin 27.3 pg (27.0-31.0); Mean Corpuscular Volume 86.5 fL (78.0-98.0); Mean Platelet Volume 8.8 fL (7.4-10.4); Platelet Count 225 thou/uL (130-400); RBC Distribution Width 13.7 % (11.5-14.5); Red Blood Cell (RBC) Count 4.74 mill/uL (4.20-5.40); White Blood Cell (WBC) Count 13.8 thou/uL (4.8-10.8)
[2018-10-09] MEDS ORDERED: Acetaminophen 500 MG TAB ONE (09:25)
[2018-10-09 09:26] LABS: ALT (SGPT) 2490 U/L (8-55); AST (SGOT) 1330 U/L (5-34); Albumin 3.9 g/dL (3.4-4.8); Alkaline Phosphatase 232 U/L (40-150); Anion Gap 16 mmol/L (10-20); BUN (Urea Nitrogen) 12 mg/dL (9.8-20.1); Bilirubin, Total 0.8 mg/dL (0.2-1.2); Calc. Creatinine Clearance 0 mL/min (70-130); Calcium 9.3 mg/dL (7.8-10.44); Carbon Dioxide 16 mmol/L (23-31); Chloride 107 mmol/L (98-107); Estimated GFR-MDRD 38; Globulin 3.2 g/dL (2.4-3.5); Glucose 151 mg/dL (80-115); Potassium 3.7 mmol/L (3.5-5.1); Protein, Total 7.1 g/dL (6.0-8.3); Sodium 135 mmol/L (136-145)
[2018-10-09 09:29] LABS: Bilirubin Small (Negative); Blood, Urine Small (Negative); Glucose, Urine (Dipstick) Negative (Negative); Leukocyte Negative (Negative); Nitrite Negative (Negative); Protein, Urine (Dipstick) 30 mg/dL (Neg-Trace); Specific Gravity, Urine 1.025 (1.005-1.030); Urobilinogen 0.2 mg/dL (0.2-1.0); pH, Urine 6.5 (5.0-9.0)
[2018-10-09 09:30] LABS: Band 18 % (5-11); Lymphocytes 7 % (21-51); MDiff Complete? YES; Monocytes 2 % (0-10); Neutrophil 68 % (42-75); Platelet Morphology Comment Appears Adequate; RBC Morphology Normal; Reactive Lymphocytes 5 % (0-10)
[2018-10-09 09:31] LABS: Clarity CLEAR (Clear)
[2018-10-09 09:38] LABS: Bacteria/HPF None Seen HPF (None Seen); Hyaline Casts/LPF NONE SEEN LPF (0-3 Hyaline); RBC/HPF 0-3 HPF (0-3); Squamous Epithelial 0-3 HPF (0-3); WBC/HPF None Seen HPF (0-3)
--- NOTE | 2018-10-09 09:57 | RAD ---
CHEST ONE VIEW: Date: 10-09-18 Time: 8:56 am. History: Fever, headache. FINDINGS: Comparison made with exam of 06-22-18. The heart size is normal. The lungs are expanded without focal areas of consolidation, pneumothorax o r pleural effusions. Post op changes and metallic hardware is seen in the cervical spine. IMPRESSION: No acute process. POS: [facility]
[2018-10-09] MEDS ORDERED: Sodium Chloride 0.9% 100 ML ONE (10:36)
[2018-10-09] MEDS ORDERED: Piperacillin/Tazobactam 3.375 GM VIAL ONE (10:36)
--- NOTE | 2018-10-09 11:03 | CT ---
CT ABDOMEN AND PELVIS WITH IV CONTRAST: Date: 10-09-18 History: Recent incision and drainage of right index finger that required hospitalization. Patient be ing treated with antibiotics and now has diarrhea and fever. Abdominal pain. Comparison: 07-05-15 FINDINGS: There are bibasilar linear densities, greater at the right lung base, likely related to atelectasis a nd/or areas of mild scarring. No consolidation or pleural fluid is seen. Post cholecystectomy changes are noted. There is a stable subcentimeter hypodense lesion within the l ateral segment of the left hepatic lobe, statistically likely representing a small cyst given stabili ty over this period of time. The spleen, pancreas, bilateral adrenal glands, and kidneys demonstrate a normal CT appearance. The u rinary bladder is decompressed but otherwise grossly normal in appearance. The uterus is not visualized, likely related to prior hysterectomy. Vascular calcifications are seen in the abdominal aorta and involving the iliac arteries. The appendix is visualized and normal in caliber. There is a small amount of retained fecal material seen in the colon suggesting constipation. No significant amount of fluid is seen within the colon. The loops of small bowel are normal in caliber, some of which are fluid filled. Small hiatal hernia is present. No free fluid, fluid collection, or lymphadenopathy is seen in the abdomen or pelvis. There is a tiny subcentimeter hypodense lesion seen in the left iliac bone which is stable when compared to the stud y in 2015 suggesting a nonaggressive lesion. Degenerative changes are present in the spine. IMPRESSION: 1. No acute findings are seen in the abdomen or pelvis. 2. Small hiatal hernia. 3. Post cholecystectomy changes and evidence of hysterectomy. 4. No CT evidence of appendicitis. 5. Small amount of retained fecal material seen throughout the colon. No significant amount of fluid is seen within the colon. 6. Probable atelectasis and/or scarring at the right lung base. POS: [facility]
[2018-10-09] MEDS ORDERED: traMADol HCl 50 MG TAB ONE (11:13)
[2018-10-09 11:19] LABS: INR-International Normal Ratio 1.2; PTT 38.4 SEC (22.9-36.1); Prothrombin Time 15.7 SEC (12.0-14.7)
[2018-10-09] MEDS ORDERED: Artificial Tears 18 DROP/0.9 ML EA EYE PRN (11:43)
[2018-10-09] MEDS ORDERED: Ondansetron PF 4 MG/2 ML Vial IVP PRN (11:43)
[2018-10-09] MEDS ORDERED: Sodium Chloride 0.65% Nasal 44 ML BOT EA NARE PRN (11:43)
[2018-10-09] MEDS ORDERED: hydrALAZINE 20 MG/ML VIAL SLOW IVP PRN (11:43)
[2018-10-09] MEDS ORDERED: Ibuprofen 200 MG TAB PO PRN (11:43)
[2018-10-09] MEDS ORDERED: Eucerin (Mineral Oil/Petrolatum,White) 30 gm Jar TOP PRN (11:43)
[2018-10-09] MEDS ORDERED: Senokot S 8.6-50 MG TAB PO PRN (11:43)
[2018-10-09] MEDS ORDERED: Diabetic Tussin 200 MG/10 ML UDCUP PO PRN (11:43)
[2018-10-09 11:46] LABS: HBSAg Index 0.41 S/CO (0-0.99); HIV (1/2) Antibody/Antigen Non-Reactive (NonReactive); HIV 1/2 INDEX 0.08 S/CO (<1.00); Hep A IgM AB Non-Reactive (NonReactive); Hep A IgM S/CO 0.08 S/CO (0-0.79); Hep B Surf Ag Non-Reactive S/CO (NonReactive); Hep C IgG Ab Non-Reactive (NonReactive)
[2018-10-09 11:47] LABS: HBCM Index 26.18 S/CO (0-0.79); Hepatitis B Core IgM Abs Reactive (NonReactive)
[2018-10-09 12:19] LABS: Acetaminophen Less than 6.0 mcg/mL (10.0-30.0); Alcohol Less than 10 mg/dL (Less than 10); Lipase 33 U/L (8-78); Salicylate Less than 8.0 mg/dL (15.0-30.0)
--- NOTE | 2018-10-09 12:46 | HP ---
PRIMARY CARE PHYSICIAN: Tamanna Ross DO REASON FOR ADMISSION: Acute hepatitis. HISTORY OF PRESENT ILLNESS: A 63-year-old female, who has underlying history of bipolar type 2, depression, chronic obstructive pulmonary disease, and gastroesophageal reflux disease, who presented to emergency room with complaint of fever, generalized weakness, diarrhea, and abdominal pain. The patient reports that she was recently hospitalized in our hospital on October 03, 2018. The patient underwent incision and debridement of right index finger infection. During that hospital course per patient, she was treated with vancomycin and Zosyn. Her culture from right index finger grew MSSA. The patient was discharged on October 06, on Bactrim. The patient reports that during that hospital course, she was constipated and she was given milk of magnesia. Since then, the patient was having several mucoid diarrhea. She denies any gross blood with diarrhea. She was having diffuse predominantly lower abdominal discomfort along with nausea, but no vomiting. Since Saturday, the patient was taking Bactrim DS. The patient did not have any rash anywhere in her body. Yesterday, the patient was not feeling good. She was feeling weak and last night, she was feverish, and this morning, she was having high-grade fever with tachycardia. Family member tried to call orthopedic office, but as the patient was not feeling better and that is why they called ambulance and brought to emergency room. In the emergency room, she was tachycardic, initially 124 and temperature 102.1. Subsequently, her pulse improved to 93 and temperature improved to 98.8 after emergency room treatment. She was relatively having low blood pressure. The patient did not have any dizziness, loss of consciousness, altered mental status, focal motor or sensory symptoms. The patient denies taking any excessive Tylenol products. She denies any alcohol abuse. She was feeling vague discomfort in the right upper quadrant and as well as epigastric region. She denies any biliary colic. She reports that her gallbladder was removed by Dr. Boyle several years ago and after that, the patient had a diagnosis of a pancreatic lesion, which was evaluated with endoscopic ultrasound per patient. The patient denies any weight loss. She denies any blood transfusion. She denies any illicit drug abuse. She denies any joint pain, but she does report myalgia. She denies any flu-like or any viral illness. She denies any sick exposure. She denies any recent travel. She does not have any family history of liver disorder. PAST MEDICAL HISTORY: Chronic obstructive pulmonary disease, osteoporosis, osteoarthritis, fibromyalgia, ? Rheumatoid arthritis, intervertebral disk disorder with myelopathy in lumbar region, vitamin B2 deficiency. PAST PSYCHIATRIC HISTORY: Bipolar type 2, anxiety, depression. PAST SURGICAL HISTORY: Hysterectomy, left index finger surgery with I and D, left wrist surgery, back surgery, cholecystectomy, endoscopic ultrasound/laparoscopic surgery for pancreas lesion. SOCIAL HISTORY: The patient drinks socially. She smokes about half pack per day. She denies any other illicit drug abuse. She had abused marijuana in the past. FAMILY HISTORY: No family history of coronary artery disease, stroke, or cancer. ALLERGIES: ADHESIVE, CYMBALTA, LATEX, AND LYRICA. CURRENT HOME MEDICATIONS: 1. Seroquel 600 mg at bedtime. 2. Clonazepam 1 mg twice daily. 3. Remeron 45 mg at bedtime. 4. Zoloft 100 mg daily. 5. Baclofen 10 mg at bedtime. 6. Breo Ellipta inhalation daily. 7. Protonix 40 mg daily. 8. Bactrim DS one tablet twice daily. 9. Tramadol 50 mg q.6 hourly p.r.n. EMERGENCY ROOM COURSE: The patient has received IV fluid. She is receiving Zosyn and vancomycin. REVIEW OF SYSTEMS: CONSTITUTIONAL: Negative for weight loss or gain, ability to conduct usual activities. SKIN: Negative for rash, itching. EYES: Negative for double vision, pain. ENT/MOUTH: Negative for nose bleeding, neck stiffness, pain, tenderness. CARDIOVASCULAR: Negative for palpitations, dyspnea on exertion, orthopnea. RESPIRATORY: Negative for shortness of breath, wheezing, cough, hemoptysis, fever or night sweats. GASTROINTESTINAL: Negative for poor appetite, abdominal pain, heartburn, nausea, vomiting, constipation, or diarrhea. GENITOURINARY: Negative for urgency, frequency, dysuria, nocturia. MUSCULOSKELETAL: Negative for pain, swelling. NEUROLOGIC/PSYCHIATRIC: Negative for anxiety, depression. ALLERGY/IMMUNOLOGIC: Negative for skin rash, bleeding tendency. Please see my HPI for pertinent positive and negative. All other review of systems reviewed and negative except as mentioned in HPI. PHYSICAL EXAMINATION: VITAL SIGNS: Currently, blood pressure 105/71, pulse 96, respiratory rate 18, temperature 98.9, and saturation 93% on room air. Weight . GENERAL: The patient is currently alert and awake, in no obvious acute distress. HEENT: Head; normocephalic and atraumatic. Eyes; pupils are round, reactive to light. Extraocular muscle intact. ENT: Oropharynx within normal limits. Moist mucous membranes. No oral lesion. No pharyngeal erythema. No exudate. NECK: Supple. No JVD. No meningeal signs of irritation. LUNGS: Clear to auscultation without any rhonchi or rales. CARDIAC: S1 and S2 regular. Tachycardia. No murmur. No gallop. No rub. ABDOMEN: The patient does have mild vague discomfort in the right upper quadrant epigastric region as well as lower abdominal discomfort. Bowel sounds are present. No peritoneal sign. No guarding. No rigidity. No rebound. BACK: Examination unremarkable. No CVA tenderness. Upper extremities, passive movement of all joints are normal. Surgical site in the right index finger, uncovered dressing and surgical site is clean and healthy without any drainage and without any erythema. Lower extremity, no edema. Good distal pulsation. No calf tenderness. SKIN: No skin rash. HEMATOLOGIC: No lymphadenopathy. NEUROLOGIC: Nonfocal examination. No asterixis. SIGNIFICANT LABORATORY DATA: CBC; WBC 13.8, hemoglobin 12.9, and platelet 228 with bandemia. CMP; sodium 135, potassium 3.7, chloride 107, carbon dioxide 16, BUN 12, creatinine 1.41, glucose 151, calcium 9.3, and lactic acid 1.5. LFT; AST 1330, ALT 2490, alkaline phosphatase 232, and albumin 3.9. Urinalysis, unremarkable. Chest x-ray based on my review, no acute cardiopulmonary process. CT of the abdomen and pelvis did not show any acute process. EKG, sinus tachycardia. ASSESSMENT/PLAN: IMPRESSION: 1. Acute hepatitis. This patient has a significantly abnormal LFT with liver enzyme in 1000. Differential diagnosis is acute hepatitis, viral, most likely acute ischemic hepatitis cannot be entirely excluded. Autoimmune hepatitis needs to be excluded. The patient has associated systemic inflammatory response syndrome criteria secondary to hepatitis. The patient's bilirubin is normal. We will check coagulation profile, ammonia. We will check hepatitis profile. We will also check some other virus including EBV, CMV. We will also check ammonia level. Gastroenterology will be consulted as this patient has associated sepsis criteria, for benefit of doubt, we will also continue antibiotic therapy. We will monitor LFT very closely. If the patient's condition does not improve, and if LFT is getting worse and if complicated by fulminant liver failure, then the patient may need liver transplant. Another differential diagnosis is drug-induced, but the patient is not taking Tylenol at home. We will check Tylenol level. Bactrim-induced hepatitis, possible. Antibiotic-induced hepatitis, possible, but because of the level of liver enzymes, less likely. 2. Sepsis with systemic inflammatory response syndrome criteria. The patient has tachycardia, high-grade fever, and leukocytosis with bandemia, all met sepsis criteria. Blood culture, urine culture obtained from emergency room. The patient will be given broad-spectrum antibiotic therapy with Zosyn and vancomycin for now and we will follow up on culture result. If cultures are negative, then we will discontinue antibiotic therapy. 3. Right index finger infection, status post I and D secondary to methicillin-sensitive staphylococcus aureus. We will continue vancomycin and Zosyn for now and then, we will narrow down antibiotic spectrum to Keflex only. 4. Chronic obstructive pulmonary disease. We will continue Breo Ellipta inhalation daily or DuoNeb q.6 hourly in p.r.n. basis. 5. Diarrhea. Given the patient had antibiotic exposure, we will check stool for C diff and as well as stool for other bacteria culture, ova, parasite. Probiotics will be given. 6. Chronic kidney disease stage 3. We will monitor renal function. We will continue with IV fluid. 7. Bipolar disorder, anxiety, and depression. We will continue clonazepam 1 mg p.o. at bedtime, Remeron 45 mg p.o. nightly. 8. Seroquel 600 mg bedtime and Zoloft 100 mg daily. These are chronic medication. 9. Gastroesophageal reflux disease. We will continue Protonix 40 mg IV p.o. daily. 10. Fibromyalgia. The patient's pain is controlled. We will continue tramadol, p.r.n. basis. We will give Motrin, p.r.n. basis. DVT prophylaxis, SCD boots. Based on PT/INR, we will decide DVT prophylaxis with Lovenox if needed. 11. Gastrointestinal prophylaxis, Protonix 40 mg IV daily. CODE STATUS: The patient is full code. The patient's daughter is surrogate decision maker. DISPOSITION PLAN: Based on clinical course, we are expecting the patient's stay in hospital for more than 2 midnights. Plan of care discussed with the patient and family member at bedside in the emergency room extensively in detail. Job ID: [id number]
[2018-10-09] MEDS: Dextrose 5 % And 0.9 % NaCl 1,000 ML IV SCH ×2 (16:34→20:12)
[2018-10-09] MEDS: cefTRIAXone\\ROCEPHIN 1 GM in Sodium Chloride 0.9% 100 ML IVPB SCH (16:34)
[2018-10-09 16:50] VITALS: BMI 28.9
[2018-10-09] MEDS ORDERED: Piperacillin/Tazobactam 3.375 GM in Sodium Chloride 0.9% 100 ML IVPB SCH (17:00)
[2018-10-09] MEDS: traMADol HCl 50 MG TAB PO PRN (18:34)
[2018-10-09] MEDS: Mometasone/Formoterol 120 PUFF INHALER INH SCH (19:57)
[2018-10-09] MEDS: Mirtazapine 15 MG TAB PO SCH (20:11)
[2018-10-09] MEDS: clonazePAM 1 MG TAB PO SCH (20:11)
[2018-10-09] MEDS: Baclofen 10 MG TAB PO SCH (20:12)
[2018-10-09 20:37] LABS: Amphetamine Not Detected (NotDetected); Barbiturates Screen Not Detected (NotDetected); Benzodiazepine Screen Detected (NotDetected); Cocaine Metabolite Screen Not Detected (NotDetected); Medtox Control Line Valid? VALID (VALID); Medtox Reader # READER 1; Methadone Not Detected (NotDetected); Methamphetamine Not Detected (NotDetected); Opiate Screen Detected (NotDetected); Oxycodone Screen Not Detected (NotDetected); Phencyclidine (PCP) Not Detected (NotDetected); THC/Cannabinoid Screen Not Detected (NotDetected); Tricyclic Screen Detected (NotDetected)
--- NOTE | 2018-10-10 00:13 | CON ---
DATE OF CONSULTATION: HISTORY OF PRESENT ILLNESS: The patient is a 63-year-old female, who was in normal state of health until two weeks prior to admission, when she developed a right index finger infection. She went into the doctor's office as an outpatient and an incision and drainage was performed. This did not seem to drain a lot of material, and it continued to worsen. She was eventually came into the emergency room. Prior to that, the day before, she developed high fevers in the 103 range. She denies any abdominal pain, any nausea, or vomiting. She has had some recent diarrhea, which she attributes to taking some Milk Of Magnesia approximately four days ago. She says over the last 24 hours her stool seems to have thickened inconsistency. No blood or mucus is noted. The patient has no prior history of liver disease. PAST MEDICAL HISTORY: Includes COPD, lower back pain, bipolar disorder, anxiety, and depression. PAST SURGICAL HISTORY: Includes hysterectomy, left hand surgery, cholecystectomy, and back surgery. MEDICATIONS: Include, 1. Ultram 50 mg p.o. q.6 hours p.r.n. 2. Bactrim 1 p.o. b.i.d. 3. Motrin 800 mg p.o. q.i.d. p.r.n. 4. Breo Ellipta one inhalation daily p.r.n. 5. Baclofen 10 mg p.o. nightly. 6. Zoloft 100 mg p.o. daily. 7. Seroquel 600 mg p.o. nightly. 8. Protonix 40 mg p.o. daily. 9. Remeron 45 mg p.o. nightly. 10. Klonopin 1 mg p.o. nightly. ALLERGIES: INCLUDE CYMBALTA, GABAPENTIN, LATEX, AND LYRICA. SOCIAL HISTORY: She does smoke on daily basis. Alcohol, none. FAMILY HISTORY: Negative for any GI or liver disease. REVIEW OF SYSTEMS: CONSTITUTIONAL: Positive for fever and chills. Negative for weight loss. EYES: No blurred vision or double vision. ENT: No sore throat or earache. CARDIOVASCULAR: No chest pain or palpitation. PULMONARY: No shortness of breath, cough, or wheezing. GI: See above. : No hematuria or dysuria. MUSCULOSKELETAL: No joint pain or muscle weakness. SKIN: No rashes. NEUROLOGIC: No numbness or seizure activity. PHYSICAL EXAMINATION: GENERAL: She is a well-developed, well-nourished white female, in no acute distress. VITAL SIGNS: Stable. She is afebrile. HEENT: Unremarkable. NECK: Supple. CHEST: Clear. CARDIOVASCULAR: Regular rate and rhythm. ABDOMEN: Soft, nontender without organomegaly or masses. Bowel sounds are present, normoactive. RECTAL: Deferred. EXTREMITIES: Normal except for bandaged right index finger. LABORATORY DATA: Shows a white blood cell count of 13.8 and hematocrit 12.9. PT is 15.7 and INR of 1.2. Chemistry shows sodium of 135, CO2 of 16, creatinine 1.41, and glucose 151. AST 1330 and ALT of 2490. Alkaline phosphatase of 232 and ammonia 36. Urinalysis is negative. Toxicology shows no elevations of salicylate, acetaminophen, or alcohol. Hepatitis panel is negative except for hepatitis B core IgM antibody positive. Abdominal and pelvic CT shows no acute inflammatory conditions, small hiatal hernia, and small amount of retained fecal material. ASSESSMENT: 1. Acute hepatitis-possibilities include acute hepatitis B since the patient's hepatitis B surface antibody IgM is positive, drug effect from the Bactrim, or response to the patient's sepsis. 2. Right index finger infection. RECOMMENDATIONS: 1. Switch antibiotics from Bactrim to some appropriate antibiotic. 2. Acute workup for hepatitis B. 3. Continue to follow LFTs. 4. Acute hepatitis workup. Job ID: [id number]
[2018-10-10] MEDS: Dextrose 5 % And 0.9 % NaCl 1,000 ML IV SCH ×3 (04:15→22:27)
[2018-10-10] MEDS: Mometasone/Formoterol 120 PUFF INHALER INH SCH ×2 (07:17→20:49)
[2018-10-10] MEDS: Saccharomyces boulardii 250 MG CAP PO SCH (08:17)
[2018-10-10 09:51] LABS: #Basophils 0.1 thou/uL (0.0-0.2); #Eosinphils 0.2 thou/uL (0.0-0.7); #Lymphocytes 3.2 thou/uL (1.20-3.40); #Monocytes 0.5 thou/uL (0.11-0.59); %Basophils 0.8 % (0.0-1.0); %Eosinophils 2.4 % (0.0-10.0); %Lymphocytes 40.4 % (21.0-51.0); %Monocytes 6.3 % (0.0-10.0); %Neutrophils 50.1 % (42.0-75.0); Hemoglobin 10.9 g/dL (12.0-16.0); Mean Corpuscular HGB CONC 31.8 g/dL (32.0-36.0); Mean Corpuscular Hemoglobin 27.9 pg (27.0-31.0); Mean Corpuscular Volume 87.6 fL (78.0-98.0); Mean Platelet Volume 8.8 fL (7.4-10.4); Platelet Count 220 thou/uL (130-400); RBC Distribution Width 14.1 % (11.5-14.5); Red Blood Cell (RBC) Count 3.91 mill/uL (4.20-5.40)
[2018-10-10 10:07] LABS: ALT (SGPT) 1445 U/L (8-55); AST (SGOT) 410 U/L (5-34); Albumin 3.4 g/dL (3.4-4.8); Alkaline Phosphatase 187 U/L (40-150); Anion Gap 12 mmol/L (10-20); BUN (Urea Nitrogen) 9 mg/dL (9.8-20.1); Bilirubin, Total 0.6 mg/dL (0.2-1.2); Calc. Creatinine Clearance 68 mL/min (70-130); Calcium 8.4 mg/dL (7.8-10.44); Carbon Dioxide 19 mmol/L (23-31); Chloride 116 mmol/L (98-107); Estimated GFR-MDRD 50; Globulin 2.7 g/dL (2.4-3.5); Glucose 85 mg/dL (80-115); Potassium 3.5 mmol/L (3.5-5.1); Protein, Total 6.1 g/dL (6.0-8.3); Sodium 143 mmol/L (136-145)
[2018-10-10 10:25] LABS: HBSAg Index 0.23 S/CO (0-0.99); Hep B Surf Ag Non-Reactive S/CO (NonReactive)
[2018-10-10 10:29] LABS: HBSAB Concentration 15.38 mIU/mL; Hep B Surf AB Reactive (NonReactive)
[2018-10-10] MEDS: traMADol HCl 50 MG TAB PO PRN ×2 (11:07→18:48)
--- NOTE | 2018-10-10 12:28 | PDOC.PN ---
- Subjective Encounter Start Date: 10/10/18 Encounter Start Time: 09:00 -: old records requested/rev Patient seen and examined. No new complaints. No overnight events - Objective Resuscitation Status - Order Detail: 10/09/18 11:43 Resuscitation Status Routine Resuscitation Status: FULL: Full Resuscitation MAR Reviewed: Yes Vital Signs & Weight: Vital Signs (12 hours) Temp Pulse Resp BP Pulse Ox 10/10/18 11:31 98.3 F 86 20 99/66 94 L 10/10/18 08:10 93 L 10/10/18 07:21 98.1 F 81 20 103/70 93 L 10/10/18 07:17 73 20 91 L 10/10/18 04:00 97.9 F 79 16 106/72 92 L Weight Weight 179 lb 2 oz I&O: 10/09/18 10/10/18 10/11/18 06:59 06:59 06:59 Intake Total 2400 Balance 2400 Result Diagrams: 10/10/18 09:01 10/10/18 09:01 Phys Exam - Physical Examination Constitutional: NAD HEENT: PERRLA, moist MMs, sclera anicteric Neck: no JVD, supple Respiratory: no wheezing, no rales, no rhonchi Cardiovascular: RRR, no significant murmur, no rub Gastrointestinal: soft, no distention, positive bowel sounds RUQ mild tenderness+ Musculoskeletal: no edema, pulses present Neurological: non-focal, normal sensation, moves all 4 limbs Lymphatic: no nodes Psychiatric: normal affect, A&O x 3 Skin: no rash, normal turgor Dx/Plan (1) Acute hepatitis B Code(s): B16.9 - ACUTE HEPATITIS B W/O DELTA-AGENT AND WITHOUT HEPATIC COMA Status: Acute (2) Abscess of right index finger Code(s): L02.511 - CUTANEOUS ABSCESS OF RIGHT HAND Status: Acute (3) Anxiety and depression Code(s): F41.9 - ANXIETY DISORDER, UNSPECIFIED; F32.9 - MAJOR DEPRESSIVE DISORDER, SINGLE EPISODE, UNSPECIFIED Status: Chronic (4) Bipolar disorder Code(s): F31.9 - BIPOLAR DISORDER, UNSPECIFIED Status: Chronic (5) CKD (chronic kidney disease) stage 3, GFR 30-59 ml/min Code(s): N18.3 - CHRONIC KIDNEY DISEASE, STAGE 3 (MODERATE) Status: Chronic (6) COPD (chronic obstructive pulmonary disease) Status: Chronic (7) GERD (gastroesophageal reflux disease) Code(s): K21.9 - GASTRO-ESOPHAGEAL REFLUX DISEASE WITHOUT ESOPHAGITIS Status: Chronic (8) Tobacco abuse Code(s): Z72.0 - TOBACCO USE Status: Chronic Comment: - Plan cont current plan of care, continue antibiotics * continue rocephin for mssa infection right index finger * LFT improving * continue IVF * medication reviewed as below * symptomatic treatment. Review of Systems - Review of Systems ENT: negative: Ear Pain, Ear Discharge, Nose Pain, Nose Discharge, Nose Congestion, Mouth Pain, Mouth Swelling, Throat Pain, Throat Swelling, Other Respiratory: negative: Cough, Dry, Shortness of Breath, Hemoptysis, SOB with Excertion, Pleuritic Pain, Sputum, Wheezing Cardiovascular: negative: chest pain, palpitations, orthopnea, paroxysmal nocturnal dyspnea, edema, light headedness, other Gastrointestinal: negative: Nausea, Vomiting, Abdominal Pain, Diarrhea, Constipation, Melena, Hematochezia, Other Genitourinary: negative: Dysuria, Frequency, Incontinence, Hematuria, Retention , Other Musculoskeletal: Hand Pain. negative: Neck Pain, Shoulder Pain, Arm Pain, Back Pain, Leg Pain, Foot Pain, Other Skin: negative: Rash, Lesions, Rashi, Bruising, Other - Medications/Allergies Allergies/Adverse Reactions: Allergies Allergy/AdvReac Type Severity Reaction Status Date / Time duloxetine HCl Allergy Anxiety Verified 10/03/18 22:15 [From Cymbalta] gabapentin Allergy Verified 10/03/18 22:15 Latex, Natural Rubber Allergy Hives Verified 10/03/18 22:15 pregabalin [From Lyrica] Allergy Anxiety Verified 10/03/18 22:15 Medications: Current Medications Albuterol/Ipratropium (Duoneb) 3 ml NEB [id number] PRN PRN Reason: SOB &/or Wheezing Artificial Tears (Tears Naturale) 2 drop EA EYE PRN PRN PRN Reason: Dry Eyes Baclofen (Lioresal) 10 mg PO HS [facility] Last Admin: 10/09/18 20:12 Dose: 10 mg Clonazepam (Klonopin) 1 mg PO HS [facility] Last Admin: 10/09/18 20:11 Dose: 1 mg Guaifenesin (Robitussin Sf) 200 mg PO Q4H PRN PRN Reason: Cough Hydralazine HCl (Apresoline) 10 mg SLOW IVP Q4H PRN PRN Reason: SBP > 180 and HR < 70 Dextrose/Sodium Chloride (D5 0.9% Ns) 1,000 mls @ 125 mls/hr IV .Q8H [facility] Last Admin: 10/10/18 12:10 Dose: 1,000 mls Ceftriaxone Sodium 1 gm/ (Sodium Chloride) 100 mls @ 200 mls/hr IVPB Q24HR [facility] Last Admin: 10/09/18 16:34 Dose: 100 mls Ibuprofen (Motrin) 400 mg PO Q4H PRN PRN Reason: Fever > 101 Last Admin: 10/09/18 22:21 Dose: 400 mg Mineral Oil/White Petrolatum (Eucerin Cream) 0 gm TOP BIDPRN PRN PRN Reason: Dry Skin Mirtazapine (Remeron) 45 mg PO HS [facility] Last Admin: 10/09/18 20:11 Dose: 45 mg Mometasone Furoate/Formoterol Fumar (Dulera 100 Mcg/5 Mcg Inhaler) 2 puff INH BID-RT [facility] Last Admin: 10/10/18 07:17 Dose: 2 puff Ondansetron HCl (Zofran) 4 mg IVP Q6H PRN PRN Reason: Nausea/Vomiting Pantoprazole Sodium (Protonix) 40 mg PO DAILY [facility] Last Admin: 10/10/18 08:17 Dose: 40 mg Quetiapine Fumarate (Seroquel) 600 mg PO [facility] Last Admin: 10/09/18 20:12 Dose: 600 mg Saccharomyces Boulardii (Florastor) 250 mg PO DAILY [facility] Last Admin: 10/10/18 08:17 Dose: 250 mg Senna/Docusate Sodium (Senokot S) 2 tab PO BIDPRN PRN PRN Reason: Constipation Sertraline HCl (Zoloft) 100 mg PO DAILY [facility] Last Admin: 10/10/18 08:17 Dose: 100 mg Sodium Chloride ([place] Nasal [place] 0.65%) 0 ml EA NARE QIDPRN PRN PRN Reason: Nasal Congestion Tramadol HCl (Ultram) 50 mg PO Q6H PRN PRN Reason: Mild Pain (1-3) Last Admin: 10/10/18 11:07 Dose: 50 mg
--- NOTE | 2018-10-10 13:27 | PRG ---
DATE OF SERVICE: 10/10/2018 SUBJECTIVE: The patient is feeling better today. She is having no GI issues. OBJECTIVE: VITAL SIGNS: Temperature 98.3, pulse 86, respiratory rate 20, and blood pressure 99/66. CHEST: Clear. CARDIOVASCULAR: Regular rate and rhythm. ABDOMEN: Soft and nontender without organomegaly or masses. LABORATORY DATA: Laboratory shows a white blood cell count of 8.0, hemoglobin 10.9, hematocrit 34.3. Chemistries significant for a total bilirubin 0.6, AST of 410, ALT of 1445, alkaline phosphatase of 187. Ammonia was performed and was 36. Serology showed hepatitis B surface antigen to be nonreactive. Hepatitis B surface antibody to be reactive with an index of 15.38. Hepatitis B core IgM antibody was reactive. HIV and hepatitis C antibody were negative. ASSESSMENT: 1. Acute hepatitis - possible drug effect from Bactrim or underlying bacterial infection. 2. Hepatitis B core antibody positivity and surface antibody positivity with hepatitis B surface antigen negativity - this indicates prior infection and immune status. 3. Right index finger infection. RECOMMENDATIONS: 1. Stable for discharge from GI standpoint. 2. Follow up LFTs as an outpatient. Job ID: [id number]
[2018-10-10] MEDS: cefTRIAXone\\ROCEPHIN 1 GM in Sodium Chloride 0.9% 100 ML IVPB SCH (17:03)
[2018-10-10] MEDS: Mirtazapine 15 MG TAB PO SCH (19:57)
[2018-10-10] MEDS: Baclofen 10 MG TAB PO SCH (19:57)
[2018-10-10] MEDS: clonazePAM 1 MG TAB PO SCH (19:57)
[2018-10-10] MEDS ORDERED: Morphine 4 MG/ML VIAL SLOW IVP PRN (21:06)
[2018-10-11] MEDS: Dextrose 5 % And 0.9 % NaCl 1,000 ML IV SCH ×4 (04:39→23:12)
[2018-10-11 07:27] LABS: #Eosinphils 0.2 thou/uL (0.0-0.7); #Lymphocytes 2.3 thou/uL (1.20-3.40); #Monocytes 0.5 thou/uL (0.11-0.59); #Neutrophils 3.4 thou/uL (1.40-6.50); %Basophils 0.7 % (0.0-1.0); %Eosinophils 3.2 % (0.0-10.0); %Lymphocytes 36.1 % (21.0-51.0); %Monocytes 7.9 % (0.0-10.0); %Neutrophils 52.1 % (42.0-75.0); Hemoglobin 9.8 g/dL (12.0-16.0); Mean Corpuscular HGB CONC 32.1 g/dL (32.0-36.0); Mean Corpuscular Hemoglobin 28.3 pg (27.0-31.0); Mean Corpuscular Volume 88.1 fL (78.0-98.0); Mean Platelet Volume 8.4 fL (7.4-10.4); Platelet Count 216 thou/uL (130-400); RBC Distribution Width 14.1 % (11.5-14.5); Red Blood Cell (RBC) Count 3.47 mill/uL (4.20-5.40); White Blood Cell (WBC) Count 6.5 thou/uL (4.8-10.8)
[2018-10-11] MEDS: Mometasone/Formoterol 120 PUFF INHALER INH SCH ×2 (07:33→18:45)
[2018-10-11 07:55] LABS: ALT (SGPT) 930 U/L (8-55); AST (SGOT) 179 U/L (5-34); Alkaline Phosphatase 155 U/L (40-150); Anion Gap 10 mmol/L (10-20); BUN (Urea Nitrogen) 6 mg/dL (9.8-20.1); Bilirubin, Total 0.5 mg/dL (0.2-1.2); Calc. Creatinine Clearance 71 mL/min (70-130); Calcium 8.4 mg/dL (7.8-10.44); Carbon Dioxide 19 mmol/L (23-31); Chloride 115 mmol/L (98-107); Estimated GFR-MDRD 53; Globulin 2.4 g/dL (2.4-3.5); Glucose 97 mg/dL (80-115); Potassium 3.4 mmol/L (3.5-5.1); Protein, Total 5.4 g/dL (6.0-8.3); Sodium 141 mmol/L (136-145)
[2018-10-11] MEDS: Saccharomyces boulardii 250 MG CAP PO SCH (08:08)
--- NOTE | 2018-10-11 11:33 | PRG ---
DATE OF SERVICE: 10/11/2018 SUBJECTIVE: The patient is feeling better. She is having no GI complaints. OBJECTIVE: VITAL SIGNS: Temperature 98.1, pulse 83, respiratory rate 20, blood pressure 119/80. CHEST: Clear. CARDIOVASCULAR: Regular rate and rhythm. ABDOMEN: Soft, nontender without organomegaly or masses. Bowel sounds present normoactive. LABORATORY DATA: Shows a white blood cell count of 6.5, hemoglobin 9.8, hematocrit 30.6. Chemistries show a total bilirubin of 0.5, AST 179, ALT of 930, alkaline phosphatase 155, albumin of 3. ASSESSMENT: 1. Acute hepatitis - suspect secondary to the patient's Bactrim or infection - this seems to be resolving. 2. Prior hepatitis B infection with immunity. 3. Right index finger infection. RECOMMENDATIONS: 1. Stable for discharge from GI standpoint. 2. Have the patient check and make sure LFTs normalize as an outpatient. 3. We will sign off. Job ID: [id number]
--- NOTE | 2018-10-11 13:40 | PDOC.PN ---
- Subjective Encounter Start Date: 10/11/18 Encounter Start Time: 10:00 Patient seen and examined. No new complaints. No overnight events - Objective Resuscitation Status - Order Detail: 10/09/18 11:43 Resuscitation Status Routine Resuscitation Status: FULL: Full Resuscitation MAR Reviewed: Yes Vital Signs & Weight: Vital Signs (12 hours) Temp Pulse Resp BP Pulse Ox 10/11/18 11:00 98.1 F 83 20 119/80 95 10/11/18 08:05 94 L 10/11/18 07:41 91 L 10/11/18 07:40 98.5 F 83 20 129/86 94 L 10/11/18 07:33 84 20 93 L 10/11/18 02:03 96 16 93 L Weight Weight 179 lb 2 oz I&O: 10/10/18 10/11/18 10/12/18 06:59 06:59 06:59 Intake Total 2400 3520 Balance 2400 3520 Result Diagrams: 10/11/18 06:51 10/11/18 06:51 Phys Exam - Physical Examination Constitutional: NAD HEENT: PERRLA, moist MMs, sclera anicteric Neck: no JVD, supple Respiratory: no wheezing, no rales, no rhonchi Cardiovascular: RRR, no significant murmur, no rub Gastrointestinal: soft, non-tender, no distention, positive bowel sounds Musculoskeletal: no edema, pulses present Neurological: non-focal, normal sensation, moves all 4 limbs Lymphatic: no nodes Psychiatric: normal affect, A&O x 3 Skin: no rash, normal turgor Dx/Plan (1) Acute hepatitis B Code(s): B16.9 - ACUTE HEPATITIS B W/O DELTA-AGENT AND WITHOUT HEPATIC COMA Status: Acute (2) Abscess of right index finger Code(s): L02.511 - CUTANEOUS ABSCESS OF RIGHT HAND Status: Acute (3) Anxiety and depression Code(s): F41.9 - ANXIETY DISORDER, UNSPECIFIED; F32.9 - MAJOR DEPRESSIVE DISORDER, SINGLE EPISODE, UNSPECIFIED Status: Chronic (4) Bipolar disorder Code(s): F31.9 - BIPOLAR DISORDER, UNSPECIFIED Status: Chronic (5) CKD (chronic kidney disease) stage 3, GFR 30-59 ml/min Code(s): N18.3 - CHRONIC KIDNEY DISEASE, STAGE 3 (MODERATE) Status: Chronic (6) COPD (chronic obstructive pulmonary disease) Status: Chronic (7) GERD (gastroesophageal reflux disease) Code(s): K21.9 - GASTRO-ESOPHAGEAL REFLUX DISEASE WITHOUT ESOPHAGITIS Status: Chronic (8) Tobacco abuse Code(s): Z72.0 - TOBACCO USE Status: Chronic Comment: - Plan cont current plan of care, continue antibiotics * DC IVF * DC rocephin * start keflex 500 mg po tid * LFT improving * will repeat LFT tomorrow * expecting discharge tomorrow * medication reviewed as below * symptomatic treatment. Review of Systems - Review of Systems ENT: negative: Ear Pain, Ear Discharge, Nose Pain, Nose Discharge, Nose Congestion, Mouth Pain, Mouth Swelling, Throat Pain, Throat Swelling, Other Respiratory: negative: Cough, Dry, Shortness of Breath, Hemoptysis, SOB with Excertion, Pleuritic Pain, Sputum, Wheezing Cardiovascular: negative: chest pain, palpitations, orthopnea, paroxysmal nocturnal dyspnea, edema, light headedness, other Gastrointestinal: negative: Nausea, Vomiting, Abdominal Pain, Diarrhea, Constipation, Melena, Hematochezia, Other Genitourinary: negative: Dysuria, Frequency, Incontinence, Hematuria, Retention , Other Musculoskeletal: negative: Neck Pain, Shoulder Pain, Arm Pain, Back Pain, Hand Pain, Leg Pain, Foot Pain, Other Skin: negative: Rash, Lesions, Rashi, Bruising, Other - Medications/Allergies Allergies/Adverse Reactions: Allergies Allergy/AdvReac Type Severity Reaction Status Date / Time duloxetine HCl Allergy Anxiety Verified 10/03/18 22:15 [From Cymbalta] gabapentin Allergy Verified 10/03/18 22:15 Latex, Natural Rubber Allergy Hives Verified 10/03/18 22:15 pregabalin [From Lyrica] Allergy Anxiety Verified 10/03/18 22:15 Medications: Current Medications Albuterol/Ipratropium (Duoneb) 3 ml NEB [id number] PRN PRN Reason: SOB &/or Wheezing Last Admin: 10/11/18 02:03 Dose: 3 ml Artificial Tears (Tears Naturale) 2 drop EA EYE PRN PRN PRN Reason: Dry Eyes Baclofen (Lioresal) 10 mg PO HS [facility] Last Admin: 10/10/18 19:57 Dose: 10 mg Cephalexin (Keflex) 500 mg PO TID [facility] Clonazepam (Klonopin) 1 mg PO [facility] Last Admin: 10/10/18 19:57 Dose: 1 mg Guaifenesin (Robitussin Sf) 200 mg PO Q4H PRN PRN Reason: Cough Hydralazine HCl (Apresoline) 10 mg SLOW IVP Q4H PRN PRN Reason: SBP > 180 and HR < 70 Dextrose/Sodium Chloride (D5 0.9% Ns) 1,000 mls @ 125 mls/hr IV .Q8H [facility] Last Admin: 10/11/18 12:41 Dose: Not Given Ibuprofen (Motrin) 400 mg PO Q4H PRN PRN Reason: Fever > 101 Last Admin: 10/09/18 22:21 Dose: 400 mg Mineral Oil/White Petrolatum (Eucerin Cream) 0 gm TOP BIDPRN PRN PRN Reason: Dry Skin Mirtazapine (Remeron) 45 mg PO [facility] Last Admin: 10/10/18 19:57 Dose: 45 mg Mometasone Furoate/Formoterol Fumar (Dulera 100 Mcg/5 Mcg Inhaler) 2 puff INH BID-RT [facility] Last Admin: 10/11/18 07:33 Dose: 2 puff Morphine Sulfate (Morphine) 2 mg SLOW IVP Q4H PRN PRN Reason: Severe Pain (7-10) Last Admin: 10/10/18 21:09 Dose: 2 mg Ondansetron HCl (Zofran) 4 mg IVP Q6H PRN PRN Reason: Nausea/Vomiting Pantoprazole Sodium (Protonix) 40 mg PO DAILY [facility] Last Admin: 10/11/18 08:08 Dose: 40 mg Quetiapine Fumarate (Seroquel) 600 mg PO [facility] Last Admin: 10/10/18 19:57 Dose: 600 mg Saccharomyces Boulardii (Florastor) 250 mg PO DAILY [facility] Last Admin: 10/11/18 08:08 Dose: 250 mg Senna/Docusate Sodium (Senokot S) 2 tab PO BIDPRN PRN PRN Reason: Constipation Sertraline HCl (Zoloft) 100 mg PO DAILY [facility] Last Admin: 10/11/18 08:08 Dose: 100 mg Sodium Chloride ([place] Nasal [place] 0.65%) 0 ml EA NARE QIDPRN PRN PRN Reason: Nasal Congestion Tramadol HCl (Ultram) 50 mg PO Q6H PRN PRN Reason: Mild Pain (1-3) Last Admin: 10/10/18 18:48 Dose: 50 mg
[2018-10-11 14:11] LABS: CMV DNA-PCR Test Negative (Negative)
[2018-10-11] MEDS: Cephalexin 250 MG CAP PO SCH ×2 (15:49→20:12)
[2018-10-11] MEDS: traMADol HCl 50 MG TAB PO PRN (18:31)
[2018-10-11] MEDS: Mirtazapine 15 MG TAB PO SCH (20:12)
[2018-10-11] MEDS: Baclofen 10 MG TAB PO SCH (20:12)
[2018-10-11] MEDS: clonazePAM 1 MG TAB PO SCH (20:12)
[2018-10-12] MEDS: traMADol HCl 50 MG TAB PO PRN (06:03)
[2018-10-12] MEDS: Mometasone/Formoterol 120 PUFF INHALER INH SCH (07:17)
[2018-10-12 07:30] VITALS: BP 132/79; TEMP 98.4
[2018-10-12] MEDS: Saccharomyces boulardii 250 MG CAP PO SCH (08:17)
[2018-10-12] MEDS: Cephalexin 250 MG CAP PO SCH (08:17)
[2018-10-12 10:43] LABS: ALT (SGPT) 849 U/L (8-55); AST (SGOT) 143 U/L (5-34); Albumin 3.8 g/dL (3.4-4.8); Alkaline Phosphatase 196 U/L (40-150); Anion Gap 15 mmol/L (10-20); BUN (Urea Nitrogen) 8 mg/dL (9.8-20.1); Bilirubin, Total 0.8 mg/dL (0.2-1.2); Calc. Creatinine Clearance 62 mL/min (70-130); Calcium 9.6 mg/dL (7.8-10.44); Carbon Dioxide 18 mmol/L (23-31); Chloride 110 mmol/L (98-107); Estimated GFR-MDRD 46; Globulin 3.2 g/dL (2.4-3.5); Glucose 165 mg/dL (80-115); Potassium 3.3 mmol/L (3.5-5.1); Sodium 140 mmol/L (136-145)
--- NOTE | 2018-10-12 12:23 | DIS ---
DATE OF ADMISSION: 10/09/2018 DATE OF DISCHARGE: 10/12/2018 PRIMARY CARE PHYSICIAN: Tamanna Ross, DISCHARGE DISPOSITION: Home. PRIMARY DISCHARGE DIAGNOSES: 1. Acute hepatitis, resolved. 2. Sepsis/systemic inflammatory response syndrome criteria, resolved. SECONDARY DISCHARGE DIAGNOSES: 1. Tobacco abuse disorder. 2. Gastroesophageal reflux disease. 3. Chronic obstructive pulmonary disease. 4. Chronic kidney disease, stage 3. 5. Bipolar disorder. 6. Anxiety and depression. 7. Recent infection of right index finger. PRIMARY PROCEDURE/OPERATION: None. RADIOLOGICAL INVESTIGATION: Chest x-ray was normal. Abdomen and pelvis CT scan showed no acute process. SIGNIFICANT LABORATORY DATA: WBC 6.5, hemoglobin 9.8, platelet 216. INR 1.2. Sodium 140, potassium 3.3, BUN 8, creatinine 1.20, calcium 9.6, AST 143, ALT 849, alkaline phosphatase 196, albumin 3.8, ammonia level 36. Lactic acid 1.5. Urinalysis normal. Urine drug screen showed opiates, tricyclic and benzodiazepine. Hepatitis B IgM antibody positive, but the surface antigen negative and surface antibody reactive. HIV negative. Hepatitis C negative. CMV negative. DISCHARGE MEDICATIONS: The patient will continue all her previous medication. 1. Baclofen 10 mg p.o. at bedtime. 2. Klonopin 1 mg p.o. at bedtime. 3. Breo Ellipta one inhalation daily. 4. Remeron 45 mg p.o. at bedtime. 5. Protonix 40 mg p.o. daily. 6. Seroquel 600 mg p.o. at bedtime. 7. Zoloft 100 mg daily. 8. Tramadol 50 mg q.6 hourly p.r.n. 9. Keflex 500 mg p.o. t.i.d. for 10 days. CONTRAINDICATION: None. CODE STATUS: Full code. INPATIENT EXPERIMENTAL MECHANIC: Paramjit Dover MD, GI was following while in the hospital. TEST RESULT PENDING ON DISCHARGE: None. ALLERGIES: CYMBALTA, GABAPENTIN, PREGABALIN. DISCHARGE PLAN: Posthospital, the patient has appointment with Dr. Iraheta tomorrow and the patient will make appointment with Dr. Tamanna Ross in 1 week and the patient is advised to follow up with Dr. Dover in 2 to 3 weeks. HOSPITAL COURSE: A 63-year-old female, recently I and D was performed for abscess over right index finger. She was treated with antibiotic therapy while in hospital and she was discharged home on Bactrim. She was brought to emergency room for nausea, anorexia, vague abdominal discomfort, and she was found with significantly abnormal LFT. She was having acute hepatitis, etiology was not clear. The patient was also having fever and leukocytosis secondary to hepatitis. The patient's LFT was improving with conservative therapy. Die Rep[employer] Dies was consulted. At this point, we have also ruled out any infectious etiology from her stool study because the patient was also complaining of diarrhea. CT abdomen and pelvis was unremarkable. The patient is doing very well. Gastroenterology is cleared her for discharge. She will follow up with primary care physician, Dr. Iraheta and Dr. Dover as instructed. The patient is seen and examined at bedside today. REVIEW OF SYSTEMS: All review of systems reviewed with her and negative. PHYSICAL EXAMINATION: VITAL SIGNS: Currently, temperature 98.4, pulse 76, respiratory rate 20, saturation 91% on room air, blood pressure 132/79. Weight 179 pounds. GENERAL: The patient is currently alert and awake, in no obvious acute distress. HEENT: Head normocephalic and atraumatic. Eyes: Pupils round, reactive to light. Extraocular muscle intact. ENT: Oropharynx within normal limits. Moist mucous membranes. No oral lesion. No pharyngeal erythema. No exudate. NECK: Supple. No JVD. No thyromegaly. No carotid bruit. No jugular venous distention. LUNGS: Clear to auscultation without any rhonchi or rales. CARDIAC: S1 and S2, regular without any murmur. ABDOMEN: Soft and benign. EXTREMITIES: No edema. NEUROLOGIC: Nonfocal examination. The patient is medically stable for discharge today. Job ID: [id number]
[2018-10-13 06:08] LABS: Hepatitis C RNA-PCR Negative (Negative)
== END 2018-10-12 11:13 | disposition home or self-care (01) | DRG 872 ==
LOC: ERS 08:40 → T4-B 11:07
PROVIDERS: ADMIT Internal Medicine; ATTEND Internal Medicine
DX: A41.9 Sepsis, unspecified organism (principal); B17.9 Acute viral hepatitis, unspecified; F31.81 Bipolar II disorder; L02.511 Cutaneous abscess of right hand; J44.9 Chronic obstructive pulmonary disease, unspecified; K21.9 Gastro-esophageal reflux disease without esophagitis; M19.90 Unspecified osteoarthritis, unspecified site; M79.7 Fibromyalgia; N18.3 Chronic kidney disease, stage 3 (moderate); R19.7 Diarrhea, unspecified; F17.210 Nicotine dependence, cigarettes, uncomplicated; Z79.2 Long term (current) use of antibiotics; Z86.19 Personal history of other infectious and parasitic diseases; Z91.040 Latex allergy status; Z88.8 Allergy status to other drugs, medicaments and biological substances
CPT/HCPCS: 36415; 71045; 74177; 80053; 80074; 80306; 80307; 81003; 81015; 82140; 83605; 83630; 83690; 85025; 85610; 85730; 86706; 87040; 87086; 87324; 87328; 87329; 87340; 87389; 87449; 87497; 87521; 87899; 93005; 94640; J0696; J2270; J2543; J3370; J7050; J7620; Q9966

== ENCOUNTER 2019-10-08 09:23 | Outpatient (CLI) | payer MEDICARE, OTHER ==
--- NOTE | 2019-10-08 09:47 | RAD ---
CHEST 2 VIEWS: Date 10/08/2019 HISTORY: Dyspnea. COMPARISON: Radiograph dated 09/13/2019. FINDINGS: Some scarring in left lung base. No pneumothorax. No effusion. No confluent air space consolidation. No acute osseous abnormality. Incomplete evaluation of the ACDF hardware. IMPRESSION: No acute intrathoracic abnormality. POS: CET
== END 2019-10-08 09:24 | disposition home or self-care (01) ==
LOC: RAD 09:23
PROVIDERS: ATTEND Internal Medicine Critical Care Medicine
DX: R06.00 Dyspnea, unspecified (principal)
CPT/HCPCS: 71046

== ENCOUNTER 2021-05-18 13:13 | Outpatient (CLI) | payer MEDICARE | END 2021-05-18 13:14 | disposition home or self-care (01) | LOC: BICRAD 13:13 | PROVIDERS: ATTEND Internal Medicine Critical Care Medicine | DX: R06.00 Dyspnea, unspecified (principal) | CPT/HCPCS: 71046 ==